=== PATIENT | male | born 1980 | race African-American/Black ===

== ENCOUNTER 2018-09-15 19:05 | Observation (INO) ==
[2018-09-15 20:06] LABS: Basophils # 0.1 10*3/uL (0.0-0.2); Basophils % 0.6 % (0.0-0.8); Eosinophils # 0.1 10*3/uL (0.0-0.87); Hematocrit 42.8 VOL% (42.0-52.0); Hemoglobin 13.9 GM/DL (14.0-18.0); Immature Granulocytes % 0.6 %; Immature Granulocytes Absolute 0.06 #; Lymphocytes # 4.1 10*3/uL (1.4-4.0); Lymphocytes % 37.4 % (21.2-54.2); Mean Corpuscular HGB Conc 32.5 GM/DL (32-36); Mean Corpuscular Volume 90.9 FL (87-102); Mean Platelet Volume 11.1 FL (9.6-12.0); Monocytes % 6.3 % (1.7-12.7); Neutrophils % 54.1 % (38.7-73.9); Platelet Count 187 T/CUMM (130-400); Red Blood Count 4.71 MC/CUMM (3.8-5.5); Red Cell Distribution Width 13.6 % (9.3-17.3); White Blood Count 10.9 T/CUMM (4-12)
[2018-09-15] MEDS ORDERED: LACTATED RINGERS 1,000 ML IV ONE (20:11)
[2018-09-15 20:12] LABS: INR 0.9; PT Patient Result 10.1 SECS
[2018-09-15 20:18] LABS: Bilirubin,Total 0.5 MG/DL (0.2-1.0); Calcium 9.1 MG/DL (8.5-10.1); Osmolality,Calculated 277.5 MOS/KG (273-304); Total Protein 7.5 G/DL (6.4-8.3)
[2018-09-15] MEDS ORDERED: ACETAMINOPHEN 325 MG TABLET PO PRN (21:39)
[2018-09-15] MEDS ORDERED: ZALEPLON 5 MG CAPSULE PO PRN (21:39)
[2018-09-15] MEDS ORDERED: ONDANSETRON 4 MG/2 ML VIAL IV PRN (21:39)
[2018-09-15] MEDS ORDERED: DOCUSATE SODIUM 100 MG CAPSULE PO PRN (21:39)
[2018-09-15] MEDS ORDERED: MORPHINE 4 MG/1 ML VIAL IV PRN (21:39)
[2018-09-15] MEDS ORDERED: NITROGLYCERIN SL 0.4 MG TABLET SL PRN (21:46)
[2018-09-15 22:04] LABS: Apearance,Urine CLEAR (Clear); Bilirubin,Urine Negative (Negative); Blood, Urine Negative (Negative); Glucose,Urine (UA) Negative (Negative); Ketones,Urine Negative (Negative); Mucus,Urine Many /LPF (Occasional); Nitrite,Urine Negative (Negative); Protein,Urine Negative; RBC,Urine 1 /HPF (0-4); Squamous Epithelial Cell,Urine Occasional /HPF (0-10); Urine Color Yellow (Yellow); Urine Specific Gravity 1.025 (1.001-1.035); Urine Urobilinogen < 2.0 EU/DL (0.2-1.0); WBC,Urine 34 /HPF (0-6)
[2018-09-15 22:11] LABS: Barbiturates Screen,Urine Negative (Negative); Benzodiazepines Screen,Urine Negative (Negative); Cannabinoid Screen,Urine Positive (Negative); Opiate Screen,Urine Negative (Negative); Phencyclidine Screen,Urine Negative (Negative)
[2018-09-15] MEDS ORDERED: ENOXAPARIN 40 MG/0.4 ML SYRINGE SUBCUT SCH (22:30)
[2018-09-16 01:52] LABS: Basophils # 0.1 10*3/uL (0.0-0.2); Basophils % 0.5 % (0.0-0.8); Eosinophils # 0.1 10*3/uL (0.0-0.87); Eosinophils % 1.1 % (0.00-10.9); Hematocrit 40.3 VOL% (42.0-52.0); Immature Granulocytes % 0.3 %; Immature Granulocytes Absolute 0.03 #; Lymphocytes # 3.9 10*3/uL (1.4-4.0); Lymphocytes % 42.6 % (21.2-54.2); Mean Corpuscular HGB Conc 32.3 GM/DL (32-36); Mean Platelet Volume 10.9 FL (9.6-12.0); Monocytes % 6.8 % (1.7-12.7); Neutrophils % 48.7 % (38.7-73.9); Platelet Count 178 T/CUMM (130-400); Red Blood Count 4.43 MC/CUMM (3.8-5.5); Red Cell Distribution Width 13.5 % (9.3-17.3); White Blood Count 9.2 T/CUMM (4-12)
[2018-09-16 02:20] LABS: Calcium 8.8 MG/DL (8.5-10.1); Osmolality,Calculated 282.3 MOS/KG (273-304); Risk Ratio 2.04; VLDL CHOLESTEROL 21.6 MG/DL
[2018-09-16] MEDS ORDERED: PANTOPRAZOLE 40 MG TABLET PO SCH (09:00)
[2018-09-16] MEDS ORDERED: ASPIRIN EC 81 MG TABLET PO SCH (10:00)
[2018-09-16] MEDS ORDERED: GABAPENTIN 100 MG CAPSULE PO SCH (10:34)
[2018-09-16] MEDS ORDERED: ACETAMINOPHEN 325 MG TABLET PO SCH (10:34)
[2018-09-16 11:38] VITALS: BP 135/78
== END 2018-09-16 13:30 | disposition home or self-care (01) ==
LOC: N.ED 19:05 → N.EDINP 19:05 → N.4E 22:57
PROVIDERS: ADMIT Internal Medicine; ATTEND Internal Medicine